=== PATIENT | male | born 1995 ===

== ENCOUNTER 2018-10-25 10:19 | Emergency (ER) | payer BC ==
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
[2018-10-25 13:01] VITALS: BP 124/87; PULSE 88; RESP 18; TEMP 98.4; O2SAT 99; BMI 19.8
== END 2018-10-25 11:45 | disposition home or self-care (01) ==
LOC: ED 10:19
DX: M79.641 Pain in right hand (principal)

== ENCOUNTER 2018-11-15 02:49 | Emergency (ER) | payer BC ==
[2018-11-15 02:56] VITALS: BMI 19.5
[2018-11-15 03:02] VITALS: TEMP 98.2; O2SAT 100
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
[2018-11-15 04:05] VITALS: BP 110/65; PULSE 62; RESP 14
--- NOTE | 2018-11-15 08:04 | RAD ---
Date of service: 11/15/2018 HISTORY: Chest contusion COMPARISON: No prior. TECHNIQUE: Chest PA and lateral FINDINGS: LUNGS: No active pulmonary disease. PLEURA: No significant pleural effusion identified. No pneumothorax apparent. CARDIOVASCULAR: No aortic atherosclerotic calcification present. Normal cardiac size. No pulmonary vascular congestion. OSSEOUS STRUCTURES: No significant abnormalities. VISUALIZED UPPER ABDOMEN: Normal. OTHER FINDINGS: None. IMPRESSION: No active disease.
== END 2018-11-15 04:04 | disposition home or self-care (01) ==
LOC: ED 02:49
DX: S20.211A Contusion of right front wall of thorax, initial encounter (principal); W50.0XXA Accidental hit or strike by another person, initial encounter